=== PATIENT | female | born 1980 | race Caucasian/White ===

== ENCOUNTER 2019-01-22 08:00 | Outpatient (CLI) | payer MEDICAID ==
[2019-01-22 18:45] LABS: BASOPHILS # (AUTO) 0.1 10^3/uL (0.0-0.1); BASOPHILS % (AUTO) 0.8 %; EOSINOPHILS # (AUTO) 0.2 10^3/uL (0.0-0.7); EOSINOPHILS % (AUTO) 2.3 %; HGB - HEMOGLOBIN 12.6 g/dL (12.0-16.0); LYMPHOCYTES # (AUTO) 3.1 10^3/uL (1.5-3.5); LYMPHOCYTES % (AUTO) 42.7 %; MEAN CORPUSCULAR HGB CONC 33.3 g/dL (32.0-36.0); MEAN CORPUSCULAR VOLUME 95.9 fL (81.0-99.0); MEAN PLATELET VOLUME 10.3 fL (7.9-10.8); MONOCYTES # (AUTO) 0.4 10^3/uL (0.0-1.0); MONOCYTES % (AUTO) 5.9 %; NEUTROPHILS # (AUTO) 3.5 10^3/uL (1.5-6.6); PLT - PLATELET COUNT 379 10^3/uL (130-450); RED BLOOD COUNT 3.94 10^6/uL (4.20-5.40); RED CELL DISTRIBUTION WIDTH 12.2 % (12.0-15.0); WHITE BLOOD COUNT 7.3 x10^3/uL (4.8-10.8)
[2019-01-22 18:55] LABS: ALBUMIN/GLOBULIN RATIO 1.1 (1.0-2.2); BILIRUBIN,TOTAL 0.4 mg/dL (0.2-1.0); CALCIUM 9.1 mg/dL (8.5-10.3); CREATININE 0.4 mg/dL (0.4-1.0); TOTAL PROTEIN 7.6 g/dL (6.7-8.2)
== END 2019-01-22 23:59 | disposition home or self-care (01) ==
LOC: LAB.WCP 08:00
PROVIDERS: ATTEND Physician Assistant
DX: R55 Syncope and collapse (principal)
CPT/HCPCS: 36415; 80048; 80053; 85025

== ENCOUNTER 2019-02-05 11:23 | Outpatient (CLI) | payer MEDICAID | END 2019-02-05 11:24 | disposition home or self-care (01) | LOC: DI 11:23 | PROVIDERS: ATTEND Physician Assistant | DX: R55 Syncope and collapse (principal) | CPT/HCPCS: 93306 ==

== ENCOUNTER 2019-12-09 09:28 | Outpatient (CLI) | payer MEDICAID ==
[2019-12-09 12:30] LABS: BASOPHILS # (AUTO) 0.1 10^3/uL (0.0-0.1); BASOPHILS % (AUTO) 0.9 %; EOSINOPHILS # (AUTO) 0.2 10^3/uL (0.0-0.7); EOSINOPHILS % (AUTO) 2.2 %; HGB - HEMOGLOBIN 12.9 g/dL (12.0-16.0); LYMPHOCYTES # (AUTO) 2.8 10^3/uL (1.5-3.5); LYMPHOCYTES % (AUTO) 41.1 %; MEAN CORPUSCULAR HEMOGLOBIN 30.3 pg (27.0-31.0); MEAN CORPUSCULAR HGB CONC 31.9 g/dL (32.0-36.0); MEAN CORPUSCULAR VOLUME 94.8 fL (81.0-99.0); MEAN PLATELET VOLUME 10.5 fL (7.9-10.8); MONOCYTES # (AUTO) 0.5 10^3/uL (0.0-1.0); MONOCYTES % (AUTO) 6.5 %; NEUTROPHILS # (AUTO) 3.4 10^3/uL (1.5-6.6); PLT - PLATELET COUNT 359 10^3/uL (130-450); RED BLOOD COUNT 4.26 10^6/uL (4.20-5.40); RED CELL DISTRIBUTION WIDTH 12.7 % (12.0-15.0); WHITE BLOOD COUNT 6.9 x10^3/uL (4.8-10.8)
[2019-12-09 12:36] LABS: ALBUMIN 3.9 g/dL (3.2-5.5); ALBUMIN/GLOBULIN RATIO 1.1 (1.0-2.2); BILIRUBIN,TOTAL 0.5 mg/dL (0.2-1.0); CALCIUM 8.9 mg/dL (8.5-10.3); CREATININE 0.5 mg/dL (0.4-1.0); TOTAL PROTEIN 7.4 g/dL (6.7-8.2)
== END 2019-12-09 23:59 | disposition home or self-care (01) ==
LOC: LAB.WCP 09:28
PROVIDERS: ATTEND Physician Assistant
DX: R53.83 Other fatigue (principal)
CPT/HCPCS: 36415; 80053; 83540; 84443; 84466; 85025

== ENCOUNTER 2020-02-21 10:33 | Emergency (ER) | payer MEDICAID ==
[2020-02-21 10:42] VITALS: BP 121/69
--- NOTE | 2020-02-21 11:06 | ED Physician Documentation ---
PD HPI HEENT - Stated complaint Stated Complaint: SWELLING IN MOUTH - Chief complaint Chief Complaint: Heent - History obtained from History obtained from: Patient - History of Present Illness Timing - onset: How many days ago (2-3) Timing - duration: Days (2-3) Timing - details: Gradual onset Location: Tooth (left upper) Associated symptoms: Facial swelling (left cheek). No: Fever, Congestion, Rhinorrhea Similar symptoms before: Diagnosis (dental infections) Recently seen: Not recently seen Review of Systems Constitutional: denies: Fever, Chills Nose: denies: Rhinorrhea / runny nose, Congestion Throat: reports: Dental pain / toothache (left upper). 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 : Kidney stones HEENT: None Psych: None Musculoskeletal: None Derm: None - Past Surgical History Past Surgical History: No - Present Medications Home Medications: Ambulatory Orders Medication Instructions Recorded Confirmed Acetaminophen [Tylenol] 650 mg PO Q6H PRN 02/21/20 02/21/20 Chlorhexidine Gluconate [Peridex] 15 ml MM TID #118 ml 02/21/20 Clindamycin [Cleocin] 300 mg PO TID 7 Days #20 capsule 02/21/20 HYDROcod/ACETAM 5/325 [Atlas 5/325] 1 ea PO Q6H PRN #18 tablet 02/21/20 Ibuprofen [Motrin] 800 mg PO Q8H PRN 02/21/20 02/21/20 Norgestimate-Ethinyl Estradiol 1 tab ORAL DAILY 02/21/20 02/21/20 [Sprintec 28 Day Tablet] - Allergies Allergies/Adverse Reactions: Allergies Allergy/AdvReac Type Severity Reaction Status Date / Time No Known Drug Allergies Allergy Verified 02/21/20 10:38 - Social History Does the pt smoke?: No Smoking Status: Never smoker Does the pt drink ETOH?: No Does the pt have substance abuse?: No - Immunizations Immunizations are current?: Yes PD ED PE NORMAL - Vitals Vital signs reviewed: Yes - General General: Alert and oriented X 3, Well developed/nourished - HEENT HEENT: Pharynx benign. No: Dentition benign (caries noted. Left upper first molar tender to percussion. Gum swelling with some whiteness of the gum in spaces. Swelling without fluctuance. Left cheek with some swelling but no redness. No fluctuance. ) - Neck Neck: Supple, no meningeal sign, No adenopathy - Cardiac Cardiac: RRR, No murmur - Respiratory Respiratory: Clear bilaterally Results - Vitals Vitals: Vital Signs - 24 hr 02/21/20 10:38 Temperature 36.2 C L Heart Rate 77 Respiratory 16 Rate Blood Pressure 121/69 O2 Saturation 100 Oxygen O2 Source Room air PD MEDICAL DECISION MAKING - ED course Complexity details: considered differential, d/w patient Departure - Departure Disposition: Home, Self Care Clinical Impression: Infected dental caries Condition: Stable Record reviewed to determine appropriate education?: Yes Instructions: ED Abscess Dental Prescriptions: Clindamycin [Cleocin] 300 mg PO TID 7 Days #20 capsule HYDROcod/ACETAM 5/325 [Atlas 5/325] 1 ea PO Q6H PRN #18 tablet PRN Reason: Pain Chlorhexidine Gluconate [Peridex] 15 ml MM TID #118 ml Comments: Use the chlorhexidine oral rinse twice daily particularly swishing around the area involved. This is an antiseptic mouth rinse. Clindamycin oral antibiotic 3 times a day for a week as directed. Tylenol and/or ibuprofen for pains regularly and add hydrocodone if needed for worse pain. This should likely be short-term just over the next few days. Follow-up with [facility] dental clinic for more definitive care of the cracked tooth. Recheck if not improving well over the next few days. Discharge Date/Time: 02/21/20 11:32
[2020-02-21] MEDS ORDERED: CLINDAMYCIN 150 MG CAPSULE PO STA (11:17)
[2020-02-21] MEDS ORDERED: ACETAMINOPHEN 325 MG TABLET PO STA (11:17)
== END 2020-02-21 11:32 | disposition home or self-care (01) ==
LOC: ED 10:33
DX: K02.9 Dental caries, unspecified (principal)
CPT/HCPCS: 99283; 99284; A9270

== ENCOUNTER 2022-07-05 08:54 | Outpatient (CLI) | payer MEDICAID ==
[2022-07-05 12:21] LABS: BASOPHILS # (AUTO) 0.1 10^3/uL (0.0-0.1); BASOPHILS % (AUTO) 0.8 %; EOSINOPHILS # (AUTO) 0.2 10^3/uL (0.0-0.7); EOSINOPHILS % (AUTO) 2.7 %; HCT - HEMATOCRIT 39.2 % (37.0-47.0); HGB - HEMOGLOBIN 12.5 g/dL (12.0-16.0); LYMPHOCYTES % (AUTO) 47.6 %; MEAN CORPUSCULAR HEMOGLOBIN 30.5 pg (27.0-31.0); MEAN CORPUSCULAR HGB CONC 31.9 g/dL (32.0-36.0); MEAN CORPUSCULAR VOLUME 95.6 fL (81.0-99.0); MEAN PLATELET VOLUME 10.2 fL (7.9-10.8); MONOCYTES # (AUTO) 0.4 10^3/uL (0.0-1.0); MONOCYTES % (AUTO) 6.2 %; NEUTROPHILS # (AUTO) 2.7 10^3/uL (1.5-6.6); NEUTROPHILS % (AUTO) 42.5 %; PLT - PLATELET COUNT 382 10^3/uL (130-450); WHITE BLOOD COUNT 6.3 x10^3/uL (4.8-10.8)
== END 2022-07-05 08:55 | disposition home or self-care (01) ==
LOC: LAB.N 08:54
PROVIDERS: ATTEND Physician Assistant
DX: Z13.220 Encounter for screening for lipoid disorders (principal); Z13.9 Encounter for screening, unspecified; Z13.29 Encounter for screening for other suspected endocrine disorder
CPT/HCPCS: 36415; 80053; 80061; 83721; 84443; 85025

== ENCOUNTER 2022-07-21 09:00 | Outpatient (CLI) | payer MEDICAID ==
[2022-07-21 12:50] LABS: THYROID STIMULATING HORMONE 2.13 uIU/mL (0.34-5.60)
[2022-07-21 12:57] LABS: ALBUMIN/GLOBULIN RATIO 1.2 (1.0-2.2); ALKALINE PHOSPHATASE 39 IU/L (42-121); ALT ALANINE AMINOTRANSFERASE 15 IU/L (10-60); AST ASPARTATE AMINOTRANSFERASE 16 IU/L (10-42); BILIRUBIN,TOTAL 0.3 mg/dL (0.2-1.0); BUN - BLOOD UREA NITROGEN 13 mg/dL (6-20); CALCIUM 8.9 mg/dL (8.5-10.3); CARBON DIOXIDE - CO2 27 mmol/L (21-32); CHLORIDE 106 mmol/L (101-111); CHOL/HDL RATIO 3.4 (<4.4); CHOLESTEROL 183 mg/dL; CREATININE 0.5 mg/dL (0.4-1.0); GFR - MDRD 137 (>89); GLUCOSE 91 mg/dL (70-100); HDL CHOLESTEROL 54 mg/dL; LDL CHOLESTEROL,CALCULATED 99 mg/dL; LDL/HDL RATIO 1.8 (<4.4); POTASSIUM 4.2 mmol/L (3.5-5.0); SODIUM 137 mmol/L (135-145); TOTAL PROTEIN 7.4 g/dL (6.7-8.2); TRIGLYCERIDES 149 mg/dL; VLDL CHOLESTEROL 30 mg/dL
== END 2022-07-21 09:01 | disposition home or self-care (01) ==
LOC: LAB 09:00
PROVIDERS: ATTEND Physician Assistant
DX: Z13.29 Encounter for screening for other suspected endocrine disorder (principal); Z13.9 Encounter for screening, unspecified; Z13.220 Encounter for screening for lipoid disorders
CPT/HCPCS: 36415; 80053; 80061; 83721; 84443

== ENCOUNTER 2023-05-22 15:32 | Outpatient (CLI) | payer MEDICAID | END 2023-05-22 15:33 | disposition critical access hospital (66) | LOC: EMS 15:32 | DX: R51.9 Headache, unspecified (principal); R42 Dizziness and giddiness; M79.622 Pain in left upper arm | CPT/HCPCS: A0425; A0427; A0999 ==

== ENCOUNTER 2023-05-22 15:50 | Emergency (ER) | payer MEDICAID ==
[2023-05-22] MEDS: SODIUM CHLORIDE 0.9% 1,000 ML IV STA (16:00)
--- NOTE | 2023-05-22 16:09 | ED Physician Documentation ---
PD HPI HEADACHE - Stated complaint Stated Complaint: ELDRIDGE - History obtained from History obtained from: Patient, EMS - Additional information Additional information: Generally healthy 42-year-old with headache. Patient says she has a history of migraine. Patient describes retro-orbital pain not atypical for her migraine. She took an Excedrin Migraine earlier today. She was at work later today and noticed that her shoulders and neck were tight. Hurts to move around. 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 She states that she had a left-sided facial droop approximately a year ago, she never sought treatment due to being tax season this sounds like Colón's palsy and resolved on its own. No focal weakness or numbness. The patient denies that she has this but she states that her coworkers have told her that her speech is sometimes slurred. No trauma no chiropractic manipulation. 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 : Kidney stones HEENT: None Psych: None Musculoskeletal: None Derm: None - Past Surgical History Past Surgical History: No - Present Medications Home Medications: Ambulatory Orders Medication Instructions Recorded Confirmed Acetaminophen [Tylenol] 650 mg PO Q6H PRN 02/21/20 05/22/23 Ibuprofen [Motrin] 800 mg PO Q8H PRN 02/21/20 05/22/23 Norgestimate-Ethinyl Estradiol 1 tab ORAL DAILY 02/21/20 05/22/23 [Sprintec 28 Day Tablet] - Allergies Allergies/Adverse Reactions: Allergies Allergy/AdvReac Type Severity Reaction Status Date / Time No Known Drug Allergies Allergy Verified 05/22/23 16:07 - Social History Does the pt smoke?: No Smoking Status: Never smoker Does the pt drink ETOH?: No Does the pt have substance abuse?: No - Immunizations Immunizations are current?: Yes PD ED PE NORMAL - Vitals Vital signs reviewed: Yes - General General: Alert and oriented X 3, No acute distress - HEENT HEENT: Atraumatic, PERRL, EOMI - Neck Neck: Supple, no meningeal sign, No JVD, No bruit, Other (Patient with significant muscular tenderness of her trapezius into her shoulder on the left side. 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 Relevant findings are: EKG personally reviewed by me at 1630 shows sinus rhythm with a rate of 73 normal intervals and axis throughout. Computer reads borderline T abnormalities inferior leads I do not see any T wave abnormalities this is a normal EKG. No prior EKGs available for comparison. - Labs Labs: Laboratory Tests 05/22/23 05/22/23 16:30 16:30 WBC 8.8 RBC 3.95 L Hgb 12.2 Hct 37.1 MCV 93.9 MCH 30.9 MCHC 32.9 RDW 12.9 Plt Count 382 MPV 9.7 Neut # (Auto) 4.6 Lymph # (Auto) 3.2 [place] # (Auto) 0.7 Eos # (Auto) 0.3 Baso # (Auto) 0.1 Absolute Nucleated RBC 0.00 Nucleated RBC % 0.0 Sodium 138 Potassium 3.6 Chloride 108 Carbon Dioxide 24 Anion Gap 6.0 BUN 14 Creatinine 0.6 Estimated GFR (MDRD) 110 Glucose 102 Calcium 8.7 Total Bilirubin 0.2 AST 13 ALT 13 Alkaline Phosphatase 37 L Total Protein 6.4 Albumin 3.8 Globulin 2.6 Albumin/Globulin Ratio 1.5 PD Medical Decision Making - ED course Complexity details: reviewed old records, reviewed results, re-evaluated patient, considered differential (The headache appears very benign, some aspects sound migrainous the pain in her trapezius and shoulder is very clearly musculoskeletal. Low suspicion that she has carotid or vertebral dissection, subarachnoid hemorrhage or other significant cause. ) ED course: iv toradol and reglan with excellent relief. She is neurologically completely intact and benign smiling happy and conversant with a totally intact neurologic exam. Not sure what to make of the reports of her coworkers of ongoing weeks of apparently intermittent slurring of her speech, but she has no signs of neurologic issues at this time. Would not proceed with advanced imaging. Departure - Departure Disposition: 01 Home, Self Care Clinical Impression: Headache Qualifiers: Headache type: tension-type Headache chronicity pattern: acute headache Intractability: not intractable Qualified Code(s): G44.209 - Tension-type headache, unspecified, not intractable Instructions: ED Cephalgia Unspecified Forms: PCP List
[2023-05-22 16:13] VITALS: O2SAT 100
[2023-05-22] MEDS: KETOROLAC 30 MG/ML VIAL IVP STA (16:26)
[2023-05-22] MEDS: METOCLOPRAMIDE 10 MG/2 ML VIAL IVP STA (16:26)
[2023-05-22 16:39] LABS: BASOPHILS # (AUTO) 0.1 10^3/uL (0.0-0.1); BASOPHILS % (AUTO) 0.7 %; EOSINOPHILS # (AUTO) 0.3 10^3/uL (0.0-0.7); EOSINOPHILS % (AUTO) 2.9 %; HCT - HEMATOCRIT 37.1 % (37.0-47.0); HGB - HEMOGLOBIN 12.2 g/dL (12.0-16.0); LYMPHOCYTES # (AUTO) 3.2 10^3/uL (1.5-3.5); LYMPHOCYTES % (AUTO) 36.9 %; MEAN CORPUSCULAR HEMOGLOBIN 30.9 pg (27.0-31.0); MEAN CORPUSCULAR HGB CONC 32.9 g/dL (32.0-36.0); MEAN CORPUSCULAR VOLUME 93.9 fL (81.0-99.0); MEAN PLATELET VOLUME 9.7 fL (7.9-10.8); MONOCYTES # (AUTO) 0.7 10^3/uL (0.0-1.0); MONOCYTES % (AUTO) 7.5 %; NEUTROPHILS # (AUTO) 4.6 10^3/uL (1.5-6.6); NEUTROPHILS % (AUTO) 51.9 %; PLT - PLATELET COUNT 382 10^3/uL (130-450); RED BLOOD COUNT 3.95 10^6/uL (4.20-5.40); RED CELL DISTRIBUTION WIDTH 12.9 % (12.0-15.0); WHITE BLOOD COUNT 8.8 x10^3/uL (4.8-10.8)
[2023-05-22 16:56] LABS: ALBUMIN 3.8 g/dL (3.2-5.5); ALBUMIN/GLOBULIN RATIO 1.5 (1.0-2.2); BILIRUBIN,TOTAL 0.2 mg/dL (0.2-1.0); CALCIUM 8.7 mg/dL (8.5-10.3); CREATININE 0.6 mg/dL (0.6-1.3); POTASSIUM 3.6 mmol/L (3.5-4.5); TOTAL PROTEIN 6.4 g/dL (6.4-8.9)
[2023-05-22 17:11] LABS: THYROID STIMULATING HORMONE 2.28 uIU/mL (0.34-5.60)
[2023-05-22 17:28] VITALS: BP 130/80
== END 2023-05-22 17:22 | disposition home or self-care (01) ==
LOC: EDUNIT# → ED 15:50
DX: G44.209 Tension-type headache, unspecified, not intractable (principal)
CPT/HCPCS: 36415; 80050; 93005; 96374; 99284; J2765